=== PATIENT | male | born 2000 | race Hispanic/Latino ===

== ENCOUNTER 2020-01-01 16:35 | Emergency (ER) | payer MEDICAID, OTHER ==
[2020-01-01 17:23] LABS: APPEARANCE,URINE Clear (CLEAR); BILIRUBIN,URINE Negative (NEGATIVE); COLOR,URINE Yellow (YELLOW); GLUCOSE, URINE (UA) Negative (NEGATIVE); KETONES,URINE Negative (NEGATIVE); LEUKOCYTE ESTERASE ,URINE Trace (NEGATIVE); NITRATE,URINE Negative (NEGATIVE); OCCULT BLOOD,URINE Negative (NEGATIVE); PH,URINE 6.5 (5.0-8.0); PROTEIN,URINE Negative (NEGATIVE); UROBILINOGEN,URINE 0.2 mg/dL (0.2-1.0)
[2020-01-01 17:31] LABS: AMPHET/METH SCREEN,URINE POSITIVE (NEGATIVE); BARBITURATE SCREEN, URINE NEGATIVE (NEGATIVE); BENZODIAZEPINES SCREEN,URINE NEGATIVE (NEGATIVE); CANNABINOID SCREEN,URINE NEGATIVE (NEGATIVE); COCAINE SCREEN,URINE NEGATIVE (NEGATIVE); OPIATE SCREEN,URINE NEGATIVE (NEGATIVE); PHENCYCLIDINE SCREEN,URINE NEGATIVE (NEGATIVE)
[2020-01-01 17:35] LABS: BACTERIA,URINE Rare /HPF (None Seen); RBC,URINE 0-1 /HPF (0-1); SQUAMOUS EPITHELIAL CELL,UR 0-2 /HPF (0-2)
[2020-01-01 17:43] LABS: ALANINE AMINOTRANSFERASE 24 U/L (12-78); ALBUMIN 4.3 g/dL (3.5-5.0); ASPARTATE AMINOTRANSFERASE 21 U/L (10-37); BILIRUBIN,TOTAL 0.6 mg/dL (0.2-1.0); CARBON DIOXIDE 30 mmol/L (21-32); CHLORIDE 103 mmol/L (101-111); GLOMERULAR FILTR. RATE CALC 102 mL/min (>60); GLUCOSE,RANDOM 108 mg/dL (70-105); SODIUM SERUM 140 mmol/L (136-145); TOTAL PROTEIN, SERUM 7.4 g/dL (6.0-8.3); UREA NITROGEN, BLOOD 5 mg/dL (7-18)
[2020-01-01 17:52] LABS: BASOPHILS % (AUTO) 0.3 % (0.0-5.0); EOSINOPHILS % (AUTO) 0.1 % (0.0-8.0); HEMATOCRIT 37.6 % (42-54); LYMPHOCYTES % (AUTO) 13.5 % (21.0-51.0); MEAN CORPUSCULAR HEMOGLOBIN 30.5 pg (27.0-33.0); MEAN CORPUSCULAR HGB CONC 35.4 g/dL (32.0-36.0); MEAN CORPUSCULAR VOLUME 86.2 fL (80-100); MONOCYTES % (AUTO) 5.1 % (3.0-13.0); NEUTROPHILS % (AUTO) 80.9 % (40.0-77.0); PLATELET COUNT (AUTO) 239 K/uL (130-400); RED BLOOD CELL COUNT(AUTO) 4.36 MIL/uL (4.50-6.20); RED CELL DISTRIBUTION WIDTH 12.4 % (11.0-15.5); WHITE BLOOD COUNT (AUTO) 7.3 K/uL (4.8-10.8)
[2020-01-01 18:04] LABS: ACETAMINOPHEN < 1 mcg/mL (10-29); ALCOHOL, BLOOD < 3 mg/dL (0-10); SALICYLATE < 2.8 mg/dL (2.8-20.0)
[2020-01-01] MEDS ORDERED: POTASSIUM BICARB/CIT AC 25 MEQ TABLET.EFF ONE (18:48)
== END 2020-01-01 19:01 | disposition home or self-care (01) ==
LOC: EDH 16:35
DX: F19.10 Other psychoactive substance abuse, uncomplicated (principal); E87.6 Hypokalemia; F41.9 Anxiety disorder, unspecified
CPT/HCPCS: 36415; 80053; 80305; 81001; 85025; 93005; 99284; G0480 ×2; G0481

== ENCOUNTER 2020-01-08 14:34 | Emergency (ER) | payer SELFPAY ==
[2020-01-08 15:21] LABS: APPEARANCE,URINE Clear (CLEAR); BILIRUBIN,URINE Negative (NEGATIVE); COLOR,URINE Yellow (YELLOW); GLUCOSE, URINE (UA) Negative (NEGATIVE); KETONES,URINE 15 mg/dL (NEGATIVE); LEUKOCYTE ESTERASE ,URINE Trace (NEGATIVE); NITRATE,URINE Negative (NEGATIVE); OCCULT BLOOD,URINE Negative (NEGATIVE); PROTEIN,URINE Negative (NEGATIVE)
[2020-01-08 15:38] LABS: BACTERIA,URINE Rare /HPF (None Seen); MUCUS,URINE Few LPF (None Seen); RBC,URINE 0-1 /HPF (0-1); SQUAMOUS EPITHELIAL CELL,UR Rare /HPF (0-2)
[2020-01-08 15:51] LABS: BASOPHILS % (AUTO) 0.3 % (0.0-5.0); EOSINOPHILS % (AUTO) 0.5 % (0.0-8.0); HEMATOCRIT 40.3 % (42-54); LYMPHOCYTES % (AUTO) 26.2 % (21.0-51.0); MEAN CORPUSCULAR HEMOGLOBIN 30.1 pg (27.0-33.0); MEAN CORPUSCULAR HGB CONC 34.5 g/dL (32.0-36.0); MEAN CORPUSCULAR VOLUME 87.2 fL (80-100); MONOCYTES % (AUTO) 6.7 % (3.0-13.0); NEUTROPHILS % (AUTO) 66.1 % (40.0-77.0); PLATELET COUNT (AUTO) 259 K/uL (130-400); RED BLOOD CELL COUNT(AUTO) 4.62 MIL/uL (4.50-6.20); RED CELL DISTRIBUTION WIDTH 12.2 % (11.0-15.5); WHITE BLOOD COUNT (AUTO) 6.2 K/uL (4.8-10.8)
[2020-01-08 16:07] LABS: POTASSIUM 3.7 mmol/L (3.5-5.1)
[2020-01-08 16:10] LABS: ALBUMIN 4.7 g/dL (3.5-5.0); BILIRUBIN,TOTAL 0.7 mg/dL (0.2-1.0); TOTAL PROTEIN, SERUM 8.1 g/dL (6.0-8.3)
[2020-01-08] MEDS ORDERED: CEFTRIAXONE SODIUM 500 MG VIAL ONE (17:23)
[2020-01-08] MEDS ORDERED: DOXYCYCLINE HYCLATE 100 MG TABLET PO ONE (17:23)
[2020-01-08] MEDS ORDERED: AZITHROMYCIN 250 MG TABLET PO ONE (17:24)
[2020-01-08] MEDS ORDERED: LIDOCAINE HCL-MPF 1% 2ML VIAL ONE (17:25)
== END 2020-01-08 19:02 | disposition home or self-care (01) ==
LOC: EDH 14:34
DX: B34.9 Viral infection, unspecified (principal); A64 Unspecified sexually transmitted disease
CPT/HCPCS: 36415; 80053; 81001; 85025; 87486; 87797; 87880; 96372; 99283; J0696; J3490

== ENCOUNTER 2025-05-01 03:00 | Inpatient (IN) | payer SELFPAY ==
[~2025-05-01] VITALS: Ht 170.2 cm; Wt 72.6 kg
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
--- NOTE | 2025-05-01 03:16 | NUR ---
[facility]PD OFFICER DEYSI #[id number] ARRIVED IN ER
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
[2025-05-01 03:44] LABS: IMMATURE GRANULOCYTE ABSOLUTE 0.02 K/uL (0-1); NUCLEATED RED BLOOD CELLS 0.0 % (0.0-0.19); PLATELET COUNT (AUTO) 382 K/uL (130-400); RED BLOOD CELL COUNT(AUTO) 4.71 MIL/uL (4.50-6.20); RED CELL DISTRIBUTION WIDTH 12.3 % (11.0-15.5); WHITE BLOOD COUNT (AUTO) 7.1 K/uL (4.8-10.8)
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
[2025-05-01 03:47] LABS: CREATININE 1.0 mg/dL (0.5-1.3); GLOMERULAR FILTR. RATE CALC 107.0 mL/min (>90); GLUCOSE,RANDOM 121.0 mg/dL (70-105); SODIUM SERUM 146.0 mmol/L (136-145); UREA NITROGEN, BLOOD 9.0 mg/dL (7-18)
[2025-05-01] MEDS: 0.9%NACL 1000ML 1,000 ML IV ONE ×2 (03:51→05:35)
--- NOTE | 2025-05-01 03:51 | HMCIMG ---
EXAM: CR Chest, 1 view CLINICAL HISTORY: Trauma. COMPARISON: None provided. FINDINGS: The lungs show no infiltrates or other acute findings. No pleural effusion or pneumothorax. The cardiomediastinal silhouette is within normal limits. No acute osseous abnormality. IMPRESSION: No acute cardiopulmonary process is evident. /[place]
[2025-05-01 03:56] LABS: ALCOHOL, BLOOD 253.0 mg/dL (0-10); ASPARTATE AMINOTRANSFERASE 45.0 U/L (10-37); TOTAL PROTEIN, SERUM 7.1 g/dL (6.0-8.3)
[2025-05-01 03:59] LABS: INR 1.02 (0.85-1.15)
[2025-05-01 04:13] LABS: CREATINE KINASE, TOTAL 1243.0 U/L (21-232)
--- NOTE | 2025-05-01 04:40 | HMCIMG ---
EXAM: CR Right Forearm, 2 views. CLINICAL HISTORY: Injury. COMPARISON: None provided. FINDINGS: No acute fracture or aggressive appearing osseous lesion. The joint spaces are within normal limits. Questionable soft tissue laceration, swelling, and bandaging around the proximal and ventral soft tissue of the forearm. IMPRESSION: No acute bony abnormality is evident. Questionable soft tissue laceration, swelling, and bandaging around the proximal and ventral soft tissue of the forearm. /[place]
--- NOTE | 2025-05-01 04:44 | HMCIMG ---
EXAM: Non-contrast CT examination of the chest, abdomen, and pelvis. CLINICAL HISTORY: Injury. TECHNIQUE: Thin collimated axial CT images of the chest, abdomen, and pelvis were obtained with sagittal and coronal reformatted images also submitted. CT scan is done according to ALARA (As Low as Reasonably Achievable). CONTRAST USED: None. COMPARISON: None provided. FINDINGS: The lungs are clear. No pulmonary contusion, effusion, pneumothorax, or mass. No pericardial effusion. The cardiac size is within normal limits. No abnormal dilatation of the thoracic aorta or pulmonary artery. No pathological lymphadenopathy. No focal thyroid abnormality is evident. Prominent falciform ligament of the liver. No focal abnormality within the liver, gallbladder, pancreas, spleen, adrenals, or kidneys. Unremarkable urinary bladder. The prostate is normal in size. No obvious bowel wall thickening, dilatation, or obstruction. Unremarkable appendix. Limited evaluation of the abdominal vessels due to the lack of intravenous contrast. No abdominal aortic aneurysm is evident. No pathological lymphadenopathy in the abdomen or pelvis. No ascites or pneumoperitoneum. No acute bony abnormality is evident in the chest, abdomen, or pelvis. IMPRESSION: No acute process in the chest, abdomen, or pelvis. /[place]
[2025-05-01] MEDS: OCTYL 2-CYANOACRYLATE 1 EACH TP ONE ×2 (05:32→05:34)
[2025-05-01] MEDS: M.V.I. IV [ADULT] 10 ML, FOLic ACID 5 MG/ML VIAL 1 MG, THIAMINE HCL 100 MG in 0.9%NACL ... IV SCH (06:47)
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
[2025-05-01] MEDS ORDERED: PHARMACY COMMUNICATION MISC PRN (09:00)
[2025-05-01] MEDS: 0.9%NACL 1000ML 1,000 ML IV SCH (09:30)
[2025-05-01 10:00] VITALS: BP 147/116; PULSE 81; RESP 18; TEMP 98.5; O2SAT 98
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
[2025-05-01 12:00] VITALS: BP 132/63; PULSE 70; RESP 18; TEMP 98.6
[2025-05-01 16:00] VITALS: BP 128/74; PULSE 51; RESP 18; TEMP 98.6
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
[2025-05-01 19:54] VITALS: BP 139/72; PULSE 60; RESP 20; TEMP 98.5
[2025-05-01 20:00] VITALS: O2SAT 96
[2025-05-01 23:50] VITALS: BP 146/71; PULSE 65; RESP 16; TEMP 98.6
[2025-05-02 03:34] VITALS: BP 119/65; PULSE 60; RESP 20; TEMP 98.4
[2025-05-02 05:15] LABS: NUCLEATED RED BLOOD CELLS 0.0 % (0.0-0.19); PLATELET COUNT (AUTO) 244.0 K/uL (130-400); RED BLOOD CELL COUNT(AUTO) 3.74 MIL/uL (4.50-6.20); RED CELL DISTRIBUTION WIDTH 12.7 % (11.0-15.5); WHITE BLOOD COUNT (AUTO) 6.6 K/uL (4.8-10.8)
[2025-05-02 05:46] LABS: ASPARTATE AMINOTRANSFERASE 30.0 U/L (10-37); CREATININE 0.8 mg/dL (0.5-1.3); GLOMERULAR FILTR. RATE CALC 126.0 mL/min (>90); GLUCOSE,RANDOM 94.0 mg/dL (70-105); SODIUM SERUM 141.0 mmol/L (136-145); TOTAL PROTEIN, SERUM 5.0 g/dL (6.0-8.3); UREA NITROGEN, BLOOD 9.0 mg/dL (7-18)
[2025-05-02 07:51] VITALS: BP 126/89; PULSE 43; RESP 18; TEMP 98
[2025-05-02] MEDS ORDERED: COMPOUND IV REFRIGERATED 1 EACH IVSOLN MISC PRN (09:30)
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
[2025-05-02 11:51] VITALS: BP 136/60; PULSE 71; RESP 18; TEMP 98.1
[2025-05-02] MEDS ORDERED: CEPH500B PO (14:18)
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
[2025-05-02] MEDS: LACTATED RINGERS 1000ML 1,000 ML IV SCH (14:36)
[2025-05-02 15:23] VITALS: BP 122/77; PULSE 66; RESP 18; TEMP 97.6
[2025-05-02 19:48] VITALS: BP 149/75; PULSE 54; RESP 20; TEMP 98.2
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
== END 2025-05-02 21:20 | disposition home or self-care (01) | DRG 565 ==
LOC: EDH 03:00 → EDHIP 03:01 → 4BH 10:00 → 4CH 05-02 09:00
PROVIDERS: ADMIT Internal Medicine; ATTEND Internal Medicine
DX: T79.6XXA Traumatic ischemia of muscle, initial encounter (principal); E87.0 Hyperosmolality and hypernatremia; S31.117A Laceration without foreign body of abdominal wall, left flank without penetration into peritoneal cavity, initial encounter; S51.811A Laceration without foreign body of right forearm, initial encounter; X99.1XXA Assault by knife, initial encounter; F10.129 Alcohol abuse with intoxication, unspecified; Y90.8 Blood alcohol level of 240 mg/100 ml or more; E87.6 Hypokalemia; Z82.49 Family history of ischemic heart disease and other diseases of the circulatory system; Z83.3 Family history of diabetes mellitus; Y92.89 Other specified places as the place of occurrence of the external cause
CPT/HCPCS: 36415; 71045; 71250; 73090; 74176; 80048; 80053; 80076; 82550; 85025; 85027; 85610; 85730; 86850; 86900; 86901; 90714; 96361; 96374; 99285; G0378; J0696; J1885; J3411; J3490; J7030